=== PATIENT | male | born 1950 | race Caucasian/White ===

== ENCOUNTER 2019-12-14 07:03 | Day surgery (SDC) | payer MEDICARE ==
[2019-12-14] MEDS ORDERED: Buffered Lidocaine 1% SYRIN* 1 ML/SYRINGE INTRADERM ONE (08:30)
[2019-12-14] MEDS ORDERED: Lactated Ringers 1000 ML Bag* 1,000 ML IV SCH (08:30)
[2019-12-14] MEDS ORDERED: Atenolol TAB* 25 MG PO ONE (08:30)
[2019-12-14] MEDS ORDERED: Lidocaine 1% INJ* 10 MG/ML 30 ML SDV ONE (09:21)
[2019-12-14] MEDS ORDERED: Bupivacaine 0.25% EPI 200,000* 30 ML SDV ONE (09:22)
[2019-12-14] MEDS ORDERED: Propofol* 10 MG/ML 20 ML BTL ONE (09:42)
[2019-12-14] MEDS ORDERED: Midazolam* 1 MG/ML 2 ML VIAL (2 MG) ONE (09:43)
[2019-12-14] MEDS ORDERED: Ondansetron INJ* 2 MG/ML VIAL IV PRN (10:45)
[2019-12-14] MEDS ORDERED: Naloxone* 0.4 MG/ML 1 ML VIAL IV PRN (10:45)
[2019-12-14] MEDS ORDERED: HYDROmorphone INJ1* 1 MG/ML SYRINGE IV PRN (10:45)
--- NOTE | 2019-12-14 10:51 | OP ---
Operative Report - Blank - Operative Report Date of Operation: 12/14/19 Note: OPERATIVE REPORT Pre-op: Headaches Post-Op: Same Procedure:Left temporal artery biopsy Surgeon: MD Nneka Asst: none Anes: general with local IVF:min EBL:min Specimen: Portion of left temporal artery Drain: none Wound: 1 To PACU
[2019-12-14 11:40] VITALS: BP 133/69
--- NOTE | 2019-12-14 23:49 | OP ---
CC: Rheumatology Office of [facility].* DATE OF OPERATION: 12/14/19 - SDS DATE OF : 48 SURGEON: Davide Early MD. MED[employer] PICKER: None. ANESTHESIA: Local with monitored anesthesia care. PRE-OP DIAGNOSIS: Giant cell arteritis with headaches. POST-OP DIAGNOSES: Giant cell arteritis with headaches. OPERATIVE PROCEDURE: Left temporal artery biopsy. ESTIMATED BLOOD LOSS: Minimal. COMPLICATIONS: None. DRAINS: None. WOUND CLASSIFICATION: I. SPECIMEN: Portion of left temporal artery. FINDINGS: It was very difficult to identify a palpable or dopplerable pulse in the left orthodoxy area and a segment of vessel was taken more inferiorly on the orthodoxy. The vessel was quite small and spasmodic. DESCRIPTION OF PROCEDURE: Written informed consent was obtained, left temporal area was marked with indelible ink and the patient was taken to the operating room, placed in sitting upright supine position. The head was turned slightly to the right. Sequential compression devices were placed. The left orthodoxy and face were prepped and draped in the usual sterile fashion. A time-out verification was completed. Using the sterile Doppler, it was very difficult to identify a dopplerable pulse on the left orthodoxy area after the skin had been shaved. More inferiorly just above the ear just anterior to the hairline, a dopplerable pulse was identified, although this was not palpable. Lidocaine 1% with epinephrine was infiltrated. A vertical incision was made and carried down through the subcutaneous tissue and fascia and an artery was identified, which was quite small, and a vessel was identified, running superiorly with some several small branches. About 3 to 4 cm of this was skeletonized and dissected and proximally and distally was ligated with a 4-0 Vicryl tie. The specimen was sent in formal. Hemostasis was assured. The incision was closed with a running 4-0 subcuticular 4-0 Vicryl suture. Steri-Strips applied. The patient tolerated the procedure well and was taken to recovery room in stable condition. [id number]/[facility] #: [id number] MTDD
== END 2019-12-14 11:48 | disposition home or self-care (01) ==
LOC: OR 07:03
PROVIDERS: ATTEND Surgery
DX: M31.5 Giant cell arteritis with polymyalgia rheumatica (principal); R51 Headache; Z87.891 Personal history of nicotine dependence; I10 Essential (primary) hypertension
CPT/HCPCS: 88305; J2250; J2704